=== PATIENT | female | born 1955 | race Caucasian/White ===

== ENCOUNTER 2018-12-06 11:10 | Emergency (ER) | payer OTHER ==
[2018-12-06 11:36] VITALS: TEMP 99.1; BMI 29.7
--- NOTE | 2018-12-06 12:34 | PDOC ---
History of Present Illness - General Chief Complaint: Injury Stated Complaint: STRUCK HER NOSE Time Seen by Provider: 12/06/18 12:01 - History of Present Illness Initial Comments: 12/06/18 12:31 This is a 63-year-old woman with past medical history significant for profound intellectual disability, mitral valve prolapse, atypical psychosis, hypothyroidism, tardive dyskinesia, presents to the emergency department status post a witnessed mechanical trip and fall. Patient admitted a usual state of health. Was walking with 2 AIDS tripped on the ground there was no loss of consciousness landed on her left knee and sustained an abrasion to her nose. Prior to the fall patient was well-appearing with no complaints after the fall patient is at her baseline mental status per the aide at the bedside. Past History - Past Medical History Allergies/Adverse Reactions: Allergies Allergy/AdvReac Type Severity Reaction Status Date / Time No Known Allergies Allergy Verified 12/06/18 11:13 Home Medications: Ambulatory Orders Atorvastatin Ca [Lipitor] 20 mg PO HS 12/06/18 Calcium Carbonate/Vitamin D3 [Calcium 600-Vit D3 800 Tablet] 1 each PO DAILY Carbamazepine 200 mg PO BID 12/06/18 Denosumab [Prolia] 60 mg SQ ASDIR 12/06/18 Docusate Sodium [Colace] 100 mg PO BID 12/06/18 Fluvoxamine Maleate 100 mg PO HS 12/06/18 Psyllium Husk/Aspartame [Metamucil] 2 tsp PO BID 12/06/18 Pyridoxine HCl (B-6) [Vitamin B6] 50 mg PO DAILY 12/06/18 Vitamin E 400 unit PO BID 12/06/18 Ziprasidone HCl [Geodon] 20 mg PO BID 12/06/18 Cardiac Disorders: Yes (MVP) COPD: No Thyroid Disease: Yes (HYPOTHYROID) Other medical history: DYSKINESIA. MENTAL RETARDATION. NON-VERBAL. - Suicide/Smoking/Psychosocial Hx Smoking History: Never smoked Hx Alcohol Use: No Drug/Substance Use Hx: No Review of Systems - Review of Systems Comments:: 12/06/18 12:31 ROS: A complete review of 10 out of 10 review of systems is taken and is negative apart from what is previously mentioned below and in the HPI. *Physical Exam - Vital Signs Last Vital Signs Temp Pulse Resp BP Pulse Ox 99.1 F 77 18 142/84 98 12/06/18 11:12 12/06/18 11:12 12/06/18 11:12 12/06/18 11:12 12/06/18 11:12 - Physical Exam Comments: 12/06/18 12:31 Vitals: Triage Vital signs reviewed General Appearance: no acute distress, well nourished well developed, Head: Abrasion to bridge of nose Eyes: Pupils equal reactive round, extraocular movement intact Neck: Supple;No Nucal rigidity Chest Wall: Nontender Cardiac: Regular rate and rhythym, no murmurs, no rubs, no gallops, Lungs: Clear to auscultation bilateral, good air movement bilaterally, Abdomen: Soft, non distended, normal bowel sounds, non tender to palpation Extremities: Full range of motion to all extremities, no cyanosis, clubbing, or edema, abrasion to right knee Skin: Warm and dry, no rashes or lesions, Neuro: Cranial Nerves 2-12 grossly intact, Strength intact to all extremities, Sensation intact to all extremities, gait normal Psych: normal mood, normal affect Moderate Sedation - Procedure Monitoring Vital Signs: Procedure Monitoring Vital Signs Temperature 99.1 F 12/06/18 11:12 Pulse Rate 77 12/06/18 11:12 Respiratory Rate 18 12/06/18 11:12 Blood Pressure 142/84 12/06/18 11:12 O2 Sat by Pulse Oximetry (%) 98 12/06/18 11:12 ED Treatment Course - RADIOLOGY Radiology Studies Ordered: Category Date Time Status FACIAL BONES CT W/O CONTRAST [CT] Stat CT Scan 12/06/18 12:[address] WITHOUT CONTRAST [CT] Stat CT Scan 12/06/18 12:13 Ordered KNEE 3 POS-LEFT [RAD] Stat Radiology 12/06/18 12:12 Ordered Medical Decision Making - Medical Decision Making 12/06/18 12:33 Mechanical trip and fall We'll image head face observe and reassess. 12/06/18 13:18 Nasal fracture noted x-ray. No other acute injuries noted on CTs Findings, need for follow-up and strict return instructions discussed with caretakers patient's home *DC/Admit/Observation/Transfer Diagnosis at time of Disposition: Abrasion Minor head injury Qualifiers: Encounter type: initial encounter Qualified Code(s): S09.90XA - Unspecified injury of head, initial encounter Nasal bone fracture Qualifiers: Encounter type: initial encounter Fracture type: closed Qualified Code(s): S02.2XXA - Fracture of nasal bones, initial encounter for closed fracture Knee contusion Qualifiers: Encounter type: initial encounter Laterality: left Qualified Code(s): S80.02XA - Contusion of left knee, initial encounter - Discharge Dispostion Disposition: HOME Condition at time of disposition: Good Decision to Admit order: No - Referrals Referrals: Yo Jensen [Primary Care Provider] - - Patient Instructions Printed Discharge Instructions: DI for Closed Head Injury Additional Instructions: Closely observe patient for the next 24 hours. Return to ED for any change in behavior persistent vomiting or for any concerns. Tonight wake the patient up from sleep every 3-4 hours to ensure the patient is arousable. Follow-up with neurology within 1 week if any concerns Regarding the nasal fracture injury and abrasion to nose apply bacitracin twice a day over the bridge of the nose ice sore affected areas 20 minutes on 20 minutes off. Return to ED for any signs of infection or any concerns - Post Discharge Activity
[2018-12-06] MEDS ORDERED: DIPHTH,PERTUSS(ACELL),TET 0.5 ML DISP.SYRIN IM ONE ×2 (14:14→14:15)
[2018-12-06 14:30] VITALS: BP 148/74; PULSE 74
== END 2018-12-06 14:26 | disposition home or self-care (01) ==
LOC: SUPCPDRO 11:10 → FER 11:10
PROC: 3E0234Z Introduction of Serum, Toxoid and Vaccine into Muscle, Percutaneous Approach (ICD-10-PCS; principal; 2018-12-06)
DX: S09.90XA Unspecified injury of head, initial encounter (principal); S00.31XA Abrasion of nose, initial encounter; S02.2XXA Fracture of nasal bones, initial encounter for closed fracture; S80.02XA Contusion of left knee, initial encounter; I34.1 Nonrheumatic mitral (valve) prolapse; E03.9 Hypothyroidism, unspecified; G24.01 Drug induced subacute dyskinesia; F79 Unspecified intellectual disabilities; W18.09XA Striking against other object with subsequent fall, initial encounter; Y93.89 Activity, other specified; Y92.129 Unspecified place in nursing home as the place of occurrence of the external cause
CPT/HCPCS: 70450-TC; 70486-TC; 73562-TC-LT-FY; 90715; 99281-25